=== PATIENT | male | born 1940 | race African-American/Black ===

== ENCOUNTER 2018-05-29 12:05 | Inpatient (IN) | payer MEDICARE, MEDICAID ==
[~2018-05-29] VITALS: Ht 185.4 cm; Wt 68.5 kg
[~2018-05-29 12:05] MED LIST: AMLO10TA80 PO; CHOL100046 PO; LAMO150T PO; LEVE500T19; RISP0.5T19 PO
[2018-05-29 13:35] LABS: HEMATOCRIT. 37.9 % (42.0-52.0); HEMOGLOBIN. 12.6 g/dL (14.0-18.0); MEAN CORPUSCULAR HEMOGLOBIN 30.3 pg (28.0-32.0); MEAN CORPUSCULAR VOLUME 91.7 fL (80.0-94.0); MEAN PLATELET VOLUME 8.7 fl (7.4-10.4); PLATELET 183 x1000/uL (130-400); RED BLOOD CELL COUNT 4.14 mill/uL (4.7-6.1); RED CELL DISTRIBUTION WIDTH 12.9 % (11.6-14.6)
[2018-05-29 13:38] LABS: CHLORIDE 100 mEq/L (98-107)
[2018-05-29 13:43] LABS: ETHANOL BLOOD < 10 mg/dL
[2018-05-29 14:03] LABS: PLATELET ESTIMATE NORMAL
[2018-05-29] MEDS ORDERED: SODIUM CHLORIDE 0.9% 500 ML IV ONE (15:00)
[2018-05-29 15:03] LABS: CLARITY URINE CLEAR (CLEAR); COLOR URINE YELLOW (YELLOW); KETONES URINE NEGATIVE (NEGATIVE); LEUKOCYTE ESTERASE URINE TRACE (NEGATIVE); NITRITE URINE NEGATIVE (NEGATIVE); OCCULT BLOOD URINE NEGATIVE (NEGATIVE); PH URINE 6.5 (4.5-8.0); PROTEIN URINE NEGATIVE (NEGATIVE); SPECIFIC GRAVITY URINE 1.006 (1.005-1.030); UROBILINOGEN URINE 0.2 E.U./dL (0.2-1.0)
[2018-05-29 15:35] LABS: *AMPHETAMINES SCREEN URINE NEGATIVE (NEGATIVE); *BARBITURATES SCREEN URINE NEGATIVE (NEGATIVE); *BENZODIAZEPINES SCREEN URINE NEGATIVE (NEGATIVE); *COCAINE SCREEN URINE NEGATIVE (NEGATIVE)
[2018-05-29 15:36] LABS: CANNABINOID URINE SCREEN NEGATIVE (NEGATIVE); METHADONE URINE SCREEN NEGATIVE (NEGATIVE); OPIATES URINE SCREEN NEGATIVE (NEGATIVE); PHENCYCLIDINE URINE SCREEN NEGATIVE (NEGATIVE)
[2018-05-29] MEDS ORDERED: CEFTRIAXONE 1 G PREMIX 50 ML IV ONE (15:45)
[2018-05-29] MEDS ORDERED: IPRATROPIUM/ALBUTEROL 0.5-3(2.5)MG/3ML NEB INH PRN (16:30)
[2018-05-29] MEDS ORDERED: ACETAMINOPHEN 650MG SUPP PR PRN (16:30)
[2018-05-29] MEDS ORDERED: ACETAMINOPHEN 325MG TABLET PO PRN (16:30)
[2018-05-29] MEDS ORDERED: LORAZEPAM 2MG/ML CPJ IV PRN (16:30)
[2018-05-29] MEDS ORDERED: NITROGLYCERIN 0.4MG TABLET SL SL PRN (16:30)
[2018-05-29] MEDS ORDERED: ZOLPIDEM TARTRATE 5MG TABLET PO PRN (16:30)
[2018-05-29] MEDS ORDERED: GUAIFENESIN 200MG/10ML SUGAR FREE UDC PO PRN (16:30)
[2018-05-29] MEDS ORDERED: LEVOFLOXACIN 500MG PREMIX 100 ML IV SCH (16:30)
[2018-05-29] MEDS ORDERED: TRAMADOL 50MG TABLET PO PRN (16:30)
[2018-05-29] MEDS ORDERED: NA PHOS,M-B/NA PHOS,DI-BA ENEMA 118ML PR PRN (16:30)
[2018-05-29] MEDS ORDERED: ONDANSETRON HCL 4MG/2ML INJ IV PRN (16:30)
[2018-05-29] MEDS ORDERED: CLONIDINE 0.1MG TABLET PO PRN (16:30)
[2018-05-29] MEDS ORDERED: DIPHENHYDRAMINE 50MG/ML VIAL IV PRN (16:30)
[2018-05-29] MEDS ORDERED: DOCUSATE SODIUM 100MG CAPSULE PO PRN (16:30)
[2018-05-29] MEDS ORDERED: MAGNESIUM/ALUMINUM HYDROXIDE/SIMETHICONE 30ML UDC PO PRN (16:30)
[2018-05-29 17:04] LABS: FOLIC ACID (FOLATE) SERUM >20 ng/mL ng/mL (>5.38)
[2018-05-29 17:16] LABS: VITAMIN B12 SERUM 1432 pg/mL (211-911)
[2018-05-29 18:15] VITALS: BP 163/67
[2018-05-29] MEDS ORDERED: ENOXAPARIN 40MG/0.4ML SYR SUBCUT SCH (18:30)
[2018-05-29 20:00] VITALS: BP 147/60
[2018-05-29 20:36] LABS: INR 1.1; PROTHROMBIN TIME 10.9 sec (9.1-11.1)
[2018-05-29] MEDS: ASCORBIC ACID 500 MG TABLET PO SCH (21:38)
[2018-05-29] MEDS: LEVETIRACETAM 500MG TABLET PO SCH (21:38)
[2018-05-29] MEDS: LAMOTRIGINE 150MG TABLET PO SCH (21:38)
[2018-05-29] MEDS: ENOXAPARIN 80MG/0.8ML SYR SUBCUT SCH (21:38)
[2018-05-29] MEDS: LEVOFLOXACIN 500MG PREMIX 100 ML IV SCH (21:46)
[2018-05-29] MEDS: SODIUM CHLORIDE 0.9% 1,000 ML IV SCH (21:46)
[2018-05-30] VITALS: BP 131/57
[2018-05-30 04:00] VITALS: BP 147/57
[2018-05-30 07:30] VITALS: BP 138/57
[2018-05-30 08:20] LABS: CREATINE KINASE MB FRACTION 3.2 ng/mL (0.5-3.6)
[2018-05-30] MEDS ORDERED: CEFTRIAXONE 1 G PREMIX 50 ML IV SCH (09:00)
[2018-05-30] MEDS: LEVETIRACETAM 500MG TABLET PO SCH ×2 (09:29→21:02)
[2018-05-30] MEDS: FAMOTIDINE 20MG TABLET PO SCH (09:29)
[2018-05-30] MEDS: ENOXAPARIN 80MG/0.8ML SYR SUBCUT SCH ×2 (09:29→21:02)
[2018-05-30] MEDS: ZINC SULFATE 220 MG ( 50 ) CAPSULE PO SCH (09:30)
[2018-05-30] MEDS: ASPIRIN 325MG EC TABLET PO SCH (09:30)
[2018-05-30] MEDS: ASCORBIC ACID 500 MG TABLET PO SCH ×2 (09:30→21:02)
[2018-05-30] MEDS: LAMOTRIGINE 150MG TABLET PO SCH ×2 (09:30→21:02)
[2018-05-30 11:21] LABS: HEMATOCRIT. 35.9 % (42.0-52.0); HEMOGLOBIN. 11.9 g/dL (14.0-18.0); MEAN CORPUSCULAR HEMOGLOBIN 30.3 pg (28.0-32.0); MEAN CORPUSCULAR VOLUME 91.4 fL (80.0-94.0); MEAN PLATELET VOLUME 8.4 fl (7.4-10.4); PLATELET 173 x1000/uL (130-400); RED BLOOD CELL COUNT 3.93 mill/uL (4.7-6.1); RED CELL DISTRIBUTION WIDTH 12.9 % (11.6-14.6)
[2018-05-30 11:23] LABS: CHLORIDE 101 mEq/L (98-107)
[2018-05-30 11:32] LABS: CREATINE KINASE 377 IU/L (39-308)
[2018-05-30 11:34] LABS: CREATINE KINASE MB FRACTION 3.4 ng/mL (0.5-3.6)
[2018-05-30 12:00] VITALS: BP 127/63
[2018-05-30 13:24] LABS: PLATELET ESTIMATE NORMAL
[2018-05-30] MEDS: SODIUM CHLORIDE 0.9% 1,000 ML IV SCH (14:26)
[2018-05-30 16:00] VITALS: BP 145/58
[2018-05-30] MEDS: CEFTRIAXONE 1 G PREMIX 50 ML IV SCH (17:36)
[2018-05-30] MEDS ORDERED: DOCU-272 PO (19:35)
[2018-05-30] MEDS ORDERED: CALC-25 PO (19:35)
[2018-05-30] MEDS ORDERED: HYDR25TA PO (19:35)
[2018-05-30] MEDS ORDERED: LISI-604 PO (19:35)
[2018-05-30 20:00] VITALS: BP 125/65
[2018-05-31] VITALS (7 sets, daily range): BP systolic 118–163; BP diastolic 53–80
[2018-05-31] MEDS: SODIUM CHLORIDE 0.9% 1,000 ML IV SCH ×3 (06:00→20:21)
[2018-05-31] MEDS: ZINC SULFATE 220 MG ( 50 ) CAPSULE PO SCH (08:07)
[2018-05-31] MEDS: LEVETIRACETAM 500MG TABLET PO SCH ×2 (08:07→20:15)
[2018-05-31] MEDS: FAMOTIDINE 20MG TABLET PO SCH (08:07)
[2018-05-31] MEDS: LAMOTRIGINE 150MG TABLET PO SCH ×2 (08:07→20:15)
[2018-05-31] MEDS: ASCORBIC ACID 500 MG TABLET PO SCH ×2 (08:08→20:15)
[2018-05-31] MEDS: ASPIRIN 325MG EC TABLET PO SCH (08:08)
[2018-05-31] MEDS: ENOXAPARIN 80MG/0.8ML SYR SUBCUT SCH ×2 (08:09→20:15)
[2018-05-31] MEDS: CEFTRIAXONE 1 G PREMIX 50 ML IV SCH (16:40)
[2018-05-31] MEDS: LEVOFLOXACIN 500MG PREMIX 100 ML IV SCH (20:15)
[2018-06-01] VITALS: BP 122/80
[2018-06-01 04:00] VITALS: BP 121/57
[2018-06-01 08:00] VITALS: BP 139/52
[2018-06-01] MEDS: ENOXAPARIN 80MG/0.8ML SYR SUBCUT SCH ×2 (09:31→20:58)
[2018-06-01] MEDS: LAMOTRIGINE 150MG TABLET PO SCH ×2 (09:32→20:58)
[2018-06-01] MEDS: ASPIRIN 325MG EC TABLET PO SCH (09:32)
[2018-06-01] MEDS: FAMOTIDINE 20MG TABLET PO SCH (09:32)
[2018-06-01] MEDS: ASCORBIC ACID 500 MG TABLET PO SCH ×2 (09:32→20:58)
[2018-06-01] MEDS: LEVETIRACETAM 500MG TABLET PO SCH ×2 (09:32→20:58)
[2018-06-01] MEDS: ZINC SULFATE 220 MG ( 50 ) CAPSULE PO SCH (09:32)
[2018-06-01 12:00] VITALS: BP 142/59
[2018-06-01] MEDS: SODIUM CHLORIDE 0.9% 1,000 ML IV SCH (13:03)
[2018-06-01 16:28] VITALS: BP 149/57
[2018-06-01] MEDS: CEFTRIAXONE 1 G PREMIX 50 ML IV SCH (16:35)
[2018-06-01] MEDS: LEVOFLOXACIN 250MG TABLET PO SCH (17:32)
[2018-06-01 20:00] VITALS: BP 144/58
[2018-06-02] VITALS: BP 131/53
[2018-06-02] MEDS: SODIUM CHLORIDE 0.9% 1,000 ML IV SCH ×2 (02:40→07:23)
[2018-06-02 04:00] VITALS: BP 148/61
[2018-06-02] MEDS: FAMOTIDINE 20MG TABLET PO SCH (08:53)
[2018-06-02] MEDS: ZINC SULFATE 220 MG ( 50 ) CAPSULE PO SCH (08:53)
[2018-06-02] MEDS: ASPIRIN 325MG EC TABLET PO SCH (08:53)
[2018-06-02] MEDS: LAMOTRIGINE 150MG TABLET PO SCH (08:53)
[2018-06-02] MEDS: LEVETIRACETAM 500MG TABLET PO SCH (08:53)
[2018-06-02] MEDS: ASCORBIC ACID 500 MG TABLET PO SCH (08:53)
[2018-06-02] MEDS: ENOXAPARIN 80MG/0.8ML SYR SUBCUT SCH (08:53)
[2018-06-02 09:09] VITALS: BP 156/57
[2018-06-02] MEDS: LEVOFLOXACIN 250MG TABLET PO SCH (11:31)
[2018-06-02 12:00] VITALS: BP 140/68
[2018-06-02 13:11] VITALS: BP 140/68
[2018-06-02 16:00] VITALS: BP 158/81
[2018-06-02] MEDS: CEFTRIAXONE 1 G PREMIX 50 ML IV SCH (17:38)
[2018-06-02] MEDS ORDERED: ATORVASTATIN CALCIUM 10MG TABLET PO SCH (21:00)
== END 2018-06-02 19:00 | DRG 871 ==
LOC: ER 12:05 → 8WST 16:05 → EDBEDREQ 16:12 → SUPCPDRO 16:15 → ENRESERV 17:05
PROVIDERS: ADMIT Internal Medicine; ATTEND Internal Medicine
DX: A41.9 Sepsis, unspecified organism (principal); N17.0 Acute kidney failure with tubular necrosis; G92 Toxic encephalopathy; N39.0 Urinary tract infection, site not specified; E87.2 Acidosis; D63.8 Anemia in other chronic diseases classified elsewhere; G40.909 Epilepsy, unspecified, not intractable, without status epilepticus; I10 Essential (primary) hypertension; M19.90 Unspecified osteoarthritis, unspecified site; R26.9 Unspecified abnormalities of gait and mobility
CPT/HCPCS: 36415; 70450; 71045; 80053; 80061; 80305; 81003; 82550; 82553; 82607; 82746; 83036; 83540; 83550; 83605; 84484; 85025; 85610; 93005; 93306; 93970; 96361; 96365; 97116; 97162; 97166; 99285; C1893; G0482; J0696; J1650; J1956; J7030

== ENCOUNTER 2020-01-12 11:28 | Inpatient (IN) | payer MEDICARE, OTHER ==
[~2020-01-12] VITALS: Ht 167.6 cm; Wt 73.5 kg
[~2020-01-12 11:28] MED LIST changes: +CALC-25 PO; +DOCU-272 PO; +HYDR25TA PO; -LAMO150T PO; +LAMO150T5 PO; -LEVE500T19; +LISI-604 PO
[2020-01-12 12:44] LABS: CHLORIDE 109 mEq/L (98-107)
[2020-01-12 12:46] LABS: BASOPHILS % 0.3 % (0.0-2.0); EOSINOPHILS % 0.1 % (0.0-5.0); HEMATOCRIT. 39.3 % (42.0-52.0); LYMPHOCYTES % 7.1 % (20.0-50.0); MEAN CORPUSCULAR HEMOGLOBIN 29.7 pg (28.0-32.0); MEAN CORPUSCULAR VOLUME 89.7 fL (80.0-94.0); MEAN PLATELET VOLUME 8.4 fl (7.4-10.4); MONOCYTES % 8.2 % (2.0-8.0); NEUTROPHILS % 84.3 % (40.0-76.0); PLATELET 243 x1000/uL (130-400); RED BLOOD CELL COUNT 4.38 mill/uL (4.7-6.1); RED CELL DISTRIBUTION WIDTH 12.8 % (11.6-14.6)
[2020-01-12 12:47] LABS: PROTHROMBIN TIME 10.4 sec (9.6-11.0)
[2020-01-12 12:48] LABS: ETHANOL BLOOD < 10 mg/dL
[2020-01-12] MEDS ORDERED: VANCOMYCIN 1 G PREMIX 200 ML IV ONE (13:15)
[2020-01-12] MEDS ORDERED: AZITHROMYCIN 500 MG in DEXT 5% WATER 250 ML IV ONE (13:15)
[2020-01-12] MEDS ORDERED: PIPERACILLIN/TAZ 3.375G PREMIX 50 ML IV ONE (13:15)
[2020-01-12 13:22] LABS: BG BASE EXCESS -2.1 mmol/L (-2.0-2.0); BG CARBOXYHEMOGLOBIN 0.8 % (0.5-1.5); BG DEOXYHEMOGLOBIN 7.1 % (0.0-5.0); BG FRACTION INSPIRED OXYGEN 99.8; BG HCO3 ACT 22.9 mmol/L (22.0-26.0); BG OXYGEN SATURATION 92.8 % (92.0-98.5); BG OXYHEMOGLOBIN 92.1 % (94.0-97.0); BG PCO2 40.2 mmHg (35.0-45.0); BG PH 7.374 (7.350-7.450); BG PO2 69.3 mmHg (75.0-100.0); BG SAMPLE SITE RIGHT RADIAL; BG TOTAL HEMOGLOBIN 13.1 g/dL (12.0-18.0); BG VENT MODE MASK - NRB
[2020-01-12] MEDS ORDERED: ONDANSETRON HCL 4MG/2ML INJ IV PRN (15:00)
[2020-01-12] MEDS ORDERED: LORAZEPAM 2MG/ML CPJ IV PRN (15:00)
[2020-01-12] MEDS ORDERED: MAGNESIUM/ALUMINUM HYDROXIDE/SIMETHICONE 30ML UDC PO PRN (15:00)
[2020-01-12] MEDS ORDERED: HYDROMORPHONE HCL/PF 2MG/ML CPJ IV PRN (15:00)
[2020-01-12] MEDS ORDERED: DOCUSATE SODIUM 100MG CAPSULE PO PRN (15:00)
[2020-01-12] MEDS ORDERED: CLONIDINE 0.1MG TABLET PO PRN (15:00)
[2020-01-12] MEDS ORDERED: ACETAMINOPHEN 325MG TABLET PO PRN (15:00)
[2020-01-12 15:06] LABS: CLARITY URINE CLOUDY (CLEAR); COLOR URINE DARK YELLOW (YELLOW); KETONES URINE NEGATIVE (NEGATIVE); LEUKOCYTE ESTERASE URINE TRACE (NEGATIVE); NITRITE URINE POSITIVE (NEGATIVE); OCCULT BLOOD URINE 3+ (NEGATIVE); PH URINE 5.5 (4.5-8.0); PROTEIN URINE 3+ (NEGATIVE); SPECIFIC GRAVITY URINE 1.022 (1.005-1.030)
[2020-01-12] MEDS ORDERED: CEFTRIAXONE 1 G PREMIX 50 ML IV NR (17:15)
[2020-01-12] MEDS ORDERED: ENOXAPARIN 40MG/0.4ML SYR SUBCUT NR (17:15)
[2020-01-12] MEDS: DEXT 5%/0.45% NACL 1000ML 1,000 ML IV SCH (17:55)
[2020-01-13] VITALS (7 sets, daily range): BP systolic 131–147; BP diastolic 42–67
[2020-01-13 06:21] LABS: HEMATOCRIT. 35.2 % (42.0-52.0); HEMOGLOBIN. 11.5 g/dL (14.0-18.0); MEAN CORPUSCULAR HEMOGLOBIN 29.4 pg (28.0-32.0); MEAN CORPUSCULAR VOLUME 89.6 fL (80.0-94.0); MEAN PLATELET VOLUME 8.4 fl (7.4-10.4); PLATELET 212 x1000/uL (130-400); RED BLOOD CELL COUNT 3.93 mill/uL (4.7-6.1); RED CELL DISTRIBUTION WIDTH 12.7 % (11.6-14.6)
[2020-01-13 07:43] LABS: CHLORIDE 109 mEq/L (98-107)
[2020-01-13] MEDS ORDERED: ALBUTEROL 6.7GM HFA INHALER ORI PRN (08:00)
[2020-01-13] MEDS ORDERED: MELA1TAB28 MT (08:59)
[2020-01-13] MEDS ORDERED: MELA5TAB19 MT (08:59)
[2020-01-13] MEDS ORDERED: LEVE1000 MT (08:59)
[2020-01-13] MEDS ORDERED: FAMO20TA8 PO (09:26)
[2020-01-13] MEDS ORDERED: BISA10SU62 RC (09:26)
[2020-01-13] MEDS ORDERED: NITR0.4T49 SL (09:26)
[2020-01-13] MEDS ORDERED: ASPI325T85 MT (09:26)
[2020-01-13] MEDS ORDERED: DIPH50CA4 PO (09:26)
[2020-01-13] MEDS ORDERED: DOCU-150 MT (09:26)
[2020-01-13] MEDS ORDERED: MULT-379 MT (09:26)
[2020-01-13] MEDS ORDERED: TRAM50TA MT (09:26)
[2020-01-13] MEDS ORDERED: ATOR10TA69 MT (09:26)
[2020-01-13 09:50] LABS: BG BASE EXCESS 1.1 mmol/L (-2.0-2.0); BG CARBOXYHEMOGLOBIN 0.3 % (0.5-1.5); BG DEOXYHEMOGLOBIN 3.9 % (0.0-5.0); BG FRACTION INSPIRED OXYGEN 100; BG HCO3 ACT 26.2 mmol/L (22.0-26.0); BG METHEMOGLOBIN 0.1 % (0.0-1.5); BG OXYGEN SATURATION 96.1 % (92.0-98.5); BG OXYHEMOGLOBIN 95.7 % (94.0-97.0); BG PCO2 43.2 mmHg (35.0-45.0); BG PO2 84.6 mmHg (75.0-100.0); BG SAMPLE SITE RIGHT BRACHIAL; BG TOTAL HEMOGLOBIN 11.8 g/dL (12.0-18.0); BG VENT MODE MASK - NRB
[2020-01-13] MEDS: METHYLPREDNISOLONE SOD SUCC 40 MG/ML VIAL IV SCH ×2 (10:33→20:59)
[2020-01-13] MEDS: GUAIFENESIN 600MG ER TABLET PO SCH ×2 (10:33→22:26)
[2020-01-13] MEDS: RISPERIDONE 0.5MG TABLET PO SCH (10:54)
[2020-01-13] MEDS ORDERED: AZITHROMYCIN 250 MG in DEXT 5% WATER 250 ML IV SCH (14:00)
[2020-01-13] MEDS: ALBUTEROL 6.7GM HFA INHALER ORI SCH ×2 (14:00→20:00)
[2020-01-13] MEDS ORDERED: CEFTRIAXONE 1 G PREMIX 50 ML IV SCH ×2 (15:00)
[2020-01-13] MEDS ORDERED: ENOXAPARIN 40MG/0.4ML SYR SUBCUT SCH (15:00)
[2020-01-13] MEDS ORDERED: AZITHROMYCIN 500 MG in DEXT 5% WATER 250 ML IV SCH (15:00)
[2020-01-13 15:44] LABS: PLATELET ESTIMATE NORMAL
[2020-01-13] MEDS ORDERED: VANCOMYCIN 1 G PREMIX 200 ML IV SCH (18:00)
[2020-01-13] MEDS: PIPERACILLIN/TAZOBACTAM 3.375 G in DEXT 5% WATER 100 ML IV SCH (18:25)
[2020-01-13] MEDS ORDERED: LEVETIRACETAM 500MG/5ML CUP PO SCH (21:00)
[2020-01-13] MEDS: LAMOTRIGINE 150MG TABLET PO SCH (21:00)
[2020-01-13] MEDS: DEXT 5%/0.45% NACL 1000ML 1,000 ML IV SCH (21:40)
[2020-01-13] MEDS ORDERED: NON FORMULARY PATIENT HOME MED XX SCH (22:30)
[2020-01-14] VITALS (53 sets, daily range): BP systolic 96–182; BP diastolic 51–94
[2020-01-14] MEDS: DEXT 5%/0.45% NACL 1000ML 1,000 ML IV SCH ×2 (00:19→13:58)
[2020-01-14] MEDS: LEVETIRACETAM 1,000 MG in SODIUM CHLORIDE 0.9% 100 ML IV SCH ×3 (00:59→21:31)
[2020-01-14] MEDS: PIPERACILLIN/TAZOBACTAM 3.375 G in DEXT 5% WATER 100 ML IV SCH ×3 (01:15→18:18)
[2020-01-14] MEDS: ALBUTEROL 6.7GM HFA INHALER ORI SCH ×3 (01:28→20:50)
[2020-01-14 07:25] LABS: CHLORIDE 111 mEq/L (98-107)
[2020-01-14 07:45] LABS: CREATINE KINASE 1999 IU/L (39-308)
[2020-01-14] MEDS: GUAIFENESIN 600MG ER TABLET PO SCH ×2 (09:00→21:31)
[2020-01-14] MEDS: RISPERIDONE 0.5MG TABLET PO SCH (09:00)
[2020-01-14] MEDS: LAMOTRIGINE 150MG TABLET PO SCH ×2 (09:00→21:32)
[2020-01-14] MEDS: METHYLPREDNISOLONE SOD SUCC 40 MG/ML VIAL IV SCH ×2 (09:12→21:32)
[2020-01-14 09:35] LABS: C REACTIVE PROTEIN QUANT > 190.0 mg/L (0.0-3.0)
[2020-01-14 10:47] LABS: BG BASE EXCESS 1.5 mmol/L (-2.0-2.0); BG CARBOXYHEMOGLOBIN 0.2 % (0.5-1.5); BG DEOXYHEMOGLOBIN 28.2 % (0.0-5.0); BG FRACTION INSPIRED OXYGEN 99.8; BG HCO3 ACT 27.4 mmol/L (22.0-26.0); BG METHEMOGLOBIN 0.3 % (0.0-1.5); BG OXYGEN SATURATION 71.7 % (92.0-98.5); BG OXYHEMOGLOBIN 71.3 % (94.0-97.0); BG PCO2 48.4 mmHg (35.0-45.0); BG PH 7.371 (7.350-7.450); BG PO2 39.7 mmHg (75.0-100.0); BG SAMPLE SITE RIGHT RADIAL; BG TOTAL HEMOGLOBIN 12.5 g/dL (12.0-18.0); BG VENT MODE MASK - NRB
[2020-01-14] MEDS ORDERED: NOREPINEPHRINE 32 MG in DEXT 5% WATER 468 ML IV PRN (11:30)
[2020-01-14] MEDS ORDERED: REMDESIVIR 200 MG in SODIUM CHLORIDE 0.9% 250 ML IV SCH (13:00)
[2020-01-14 13:30] LABS: BG BASE EXCESS -0.5 mmol/L (-2.0-2.0); BG CARBOXYHEMOGLOBIN 0.4 % (0.5-1.5); BG FRACTION INSPIRED OXYGEN 100; BG HCO3 ACT 30.3 mmol/L (22.0-26.0); BG METHEMOGLOBIN 0.3 % (0.0-1.5); BG OXYGEN SATURATION 88.9 % (92.0-98.5); BG OXYHEMOGLOBIN 88.3 % (94.0-97.0); BG PCO2 84.3 mmHg (35.0-45.0); BG PH 7.173 (7.350-7.450); BG PO2 69.9 mmHg (75.0-100.0); BG SAMPLE SITE RIGHT BRACHIAL; BG TIDAL VOLUME(mL) 450 mL; BG TOTAL HEMOGLOBIN 13.5 g/dL (12.0-18.0); BG VENT MODE VENT - A/C; BG VENT RATE 18 set
[2020-01-14] MEDS ORDERED: LIDOCAINE HCL 1% 20ML VIAL (Pyxis) INJ ONE (13:32)
[2020-01-14] MEDS: ENOXAPARIN 80MG/0.8ML SYR SUBCUT SCH (14:00)
[2020-01-14] MEDS: PROPOFOL 10MG/ML 100ML 100 ML IV PRN ×2 (15:07→20:48)
[2020-01-14] MEDS: VANCOMYCIN 1 G PREMIX 200 ML IV SCH (17:17)
[2020-01-14] MEDS: AZITHROMYCIN 250 MG in DEXT 5% WATER 250 ML IV SCH (21:31)
[2020-01-15] VITALS (97 sets, daily range): BP systolic 89–157; BP diastolic 45–103
[2020-01-15] MEDS: PIPERACILLIN/TAZOBACTAM 3.375 G in DEXT 5% WATER 100 ML IV SCH ×2 (00:47→05:35)
[2020-01-15] MEDS: PROPOFOL 10MG/ML 100ML 100 ML IV PRN ×5 (01:24→19:47)
[2020-01-15] MEDS: ENOXAPARIN 80MG/0.8ML SYR SUBCUT SCH (02:17)
[2020-01-15] MEDS: LEVETIRACETAM 1,000 MG in SODIUM CHLORIDE 0.9% 100 ML IV SCH ×2 (08:51→20:47)
[2020-01-15] MEDS: LAMOTRIGINE 150MG TABLET PO SCH ×2 (08:51→20:47)
[2020-01-15] MEDS: METHYLPREDNISOLONE SOD SUCC 40 MG/ML VIAL IV SCH ×2 (08:51→20:47)
[2020-01-15] MEDS: RISPERIDONE 0.5MG TABLET PO SCH (08:51)
[2020-01-15] MEDS: GUAIFENESIN 600MG ER TABLET PO SCH (08:51)
[2020-01-15 09:23] LABS: BG BASE EXCESS -0.8 mmol/L (-2.0-2.0); BG CARBOXYHEMOGLOBIN 0.3 % (0.5-1.5); BG DEOXYHEMOGLOBIN 1.3 % (0.0-5.0); BG FRACTION INSPIRED OXYGEN 100; BG HCO3 ACT 27.1 mmol/L (22.0-26.0); BG METHEMOGLOBIN 0.3 % (0.0-1.5); BG OXYGEN SATURATION 98.7 % (92.0-98.5); BG OXYHEMOGLOBIN 98.1 % (94.0-97.0); BG PCO2 61.7 mmHg (35.0-45.0); BG PH 7.261 (7.350-7.450); BG PO2 167.1 mmHg (75.0-100.0); BG SAMPLE SITE RIGHT RADIAL; BG TIDAL VOLUME(mL) 450 mL; BG TOTAL HEMOGLOBIN 11.4 g/dL (12.0-18.0); BG VENT MODE VENT - A/C; BG VENT RATE 18 set
[2020-01-15] MEDS: DEXT 5%/0.45% NACL 1000ML 1,000 ML IV SCH (10:48)
[2020-01-15] MEDS: PIPERACILLIN/TAZOBACTAM 2.25 G in DEXTROSE 5% WATER 50 ML IV SCH ×3 (11:32→23:39)
[2020-01-15] MEDS: REMDESIVIR 100 MG in SODIUM CHLORIDE 0.9% 250 ML IV SCH (13:58)
[2020-01-15] MEDS: VANCOMYCIN 1 G PREMIX 200 ML IV SCH (14:00)
[2020-01-15] MEDS: AZITHROMYCIN 250 MG in DEXT 5% WATER 250 ML IV SCH (18:39)
[2020-01-15] MEDS ORDERED: ENOXAPARIN 80MG/0.8ML SYR SUBCUT SCH (23:00)
[2020-01-16] VITALS (89 sets, daily range): BP systolic 96–155; BP diastolic 47–79
[2020-01-16] MEDS: ALBUTEROL 6.7GM HFA INHALER ORI SCH ×6 (00:30→21:05)
[2020-01-16] MEDS: PROPOFOL 10MG/ML 100ML 100 ML IV PRN ×6 (00:31→22:45)
[2020-01-16] MEDS: PIPERACILLIN/TAZOBACTAM 2.25 G in DEXTROSE 5% WATER 50 ML IV SCH ×3 (05:19→17:39)
[2020-01-16] MEDS: DEXT 5%/0.45% NACL 1000ML 1,000 ML IV SCH (05:21)
[2020-01-16 05:34] LABS: HEMATOCRIT. 29.7 % (42.0-52.0); HEMOGLOBIN. 10.2 g/dL (14.0-18.0); MEAN CORPUSCULAR HEMOGLOBIN 31.3 pg (28.0-32.0); MEAN CORPUSCULAR VOLUME 90.9 fL (80.0-94.0); MEAN PLATELET VOLUME 9.1 fl (7.4-10.4); PLATELET 187 x1000/uL (130-400); RED BLOOD CELL COUNT 3.27 mill/uL (4.7-6.1); RED CELL DISTRIBUTION WIDTH 13.5 % (11.6-14.6)
[2020-01-16] MEDS: VANCOMYCIN 1 G PREMIX 200 ML IV SCH (06:42)
[2020-01-16] MEDS: METHYLPREDNISOLONE SOD SUCC 40 MG/ML VIAL IV SCH ×2 (09:32→20:55)
[2020-01-16] MEDS: RISPERIDONE 0.5MG TABLET PO SCH (09:32)
[2020-01-16] MEDS: LEVETIRACETAM 1,000 MG in SODIUM CHLORIDE 0.9% 100 ML IV SCH ×2 (09:32→20:55)
[2020-01-16] MEDS: LAMOTRIGINE 150MG TABLET PO SCH ×2 (09:32→20:54)
[2020-01-16 09:40] LABS: BG BASE EXCESS 1.6 mmol/L (-2.0-2.0); BG CARBOXYHEMOGLOBIN 0.3 % (0.5-1.5); BG DEOXYHEMOGLOBIN 3.2 % (0.0-5.0); BG FRACTION INSPIRED OXYGEN 80; BG HCO3 ACT 28.3 mmol/L (22.0-26.0); BG METHEMOGLOBIN 0.2 % (0.0-1.5); BG OXYGEN SATURATION 96.8 % (92.0-98.5); BG OXYHEMOGLOBIN 96.3 % (94.0-97.0); BG PCO2 54.8 mmHg (35.0-45.0); BG PH 7.331 (7.350-7.450); BG PO2 99.2 mmHg (75.0-100.0); BG SAMPLE SITE RIGHT RADIAL; BG TIDAL VOLUME(mL) 450 mL; BG TOTAL HEMOGLOBIN 10.9 g/dL (12.0-18.0); BG VENT MODE VENT- PRVC; BG VENT RATE 24 set
[2020-01-16 11:10] LABS: PLATELET ESTIMATE NORMAL
[2020-01-16] MEDS: REMDESIVIR 100 MG in SODIUM CHLORIDE 0.9% 250 ML IV SCH (14:00)
[2020-01-16] MEDS: ENOXAPARIN 80MG/0.8ML SYR SUBCUT SCH (17:41)
[2020-01-16] MEDS: AZITHROMYCIN 250 MG in DEXT 5% WATER 250 ML IV SCH (19:02)
[2020-01-17] VITALS (98 sets, daily range): BP systolic 94–160; BP diastolic 45–111
[2020-01-17] MEDS: VANCOMYCIN 1 G PREMIX 200 ML IV SCH ×2 (01:01→17:36)
[2020-01-17] MEDS: PIPERACILLIN/TAZOBACTAM 2.25 G in DEXTROSE 5% WATER 50 ML IV SCH ×5 (01:01→23:49)
[2020-01-17] MEDS: DEXT 5%/0.45% NACL 1000ML 1,000 ML IV SCH ×2 (01:02→23:49)
[2020-01-17] MEDS: PROPOFOL 10MG/ML 100ML 100 ML IV PRN ×7 (01:13→22:49)
[2020-01-17] MEDS: ALBUTEROL 6.7GM HFA INHALER ORI SCH ×6 (01:15→20:50)
[2020-01-17] MEDS: ENOXAPARIN 80MG/0.8ML SYR SUBCUT SCH ×2 (08:04→17:22)
[2020-01-17] MEDS: METHYLPREDNISOLONE SOD SUCC 40 MG/ML VIAL IV SCH ×2 (08:26→20:29)
[2020-01-17] MEDS: RISPERIDONE 0.5MG TABLET PO SCH (08:26)
[2020-01-17] MEDS: LEVETIRACETAM 1,000 MG in SODIUM CHLORIDE 0.9% 100 ML IV SCH ×2 (08:26→21:34)
[2020-01-17 09:02] LABS: BG BASE EXCESS 3.4 mmol/L (-2.0-2.0); BG CARBOXYHEMOGLOBIN 0.3 % (0.5-1.5); BG DEOXYHEMOGLOBIN 4.2 % (0.0-5.0); BG FRACTION INSPIRED OXYGEN 70; BG HCO3 ACT 30.4 mmol/L (22.0-26.0); BG OXYGEN SATURATION 95.8 % (92.0-98.5); BG OXYHEMOGLOBIN 95.5 % (94.0-97.0); BG PH 7.337 (7.350-7.450); BG PO2 86.5 mmHg (75.0-100.0); BG SAMPLE SITE RIGHT RADIAL; BG TIDAL VOLUME(mL) 450 mL; BG TOTAL HEMOGLOBIN 11.5 g/dL (12.0-18.0); BG VENT MODE PRVC; BG VENT RATE 24 set
[2020-01-17] MEDS: LAMOTRIGINE 150MG TABLET PO SCH ×2 (10:36→20:29)
[2020-01-17] MEDS: REMDESIVIR 100 MG in SODIUM CHLORIDE 0.9% 250 ML IV SCH (12:50)
[2020-01-17] MEDS: METOCLOPRAMIDE HCL 10MG/2ML VIAL IV SCH (17:19)
[2020-01-17] MEDS: AZITHROMYCIN 250 MG in DEXT 5% WATER 250 ML IV SCH (18:07)
[2020-01-17] MEDS: MIDAZOLAM HCL 100 MG in DEXT 5% WATER 80 ML IV PRN (23:12)
[2020-01-18] VITALS (91 sets, daily range): BP systolic 103–168; BP diastolic 53–116
[2020-01-18] MEDS: METOCLOPRAMIDE HCL 10MG/2ML VIAL IV SCH ×4 (00:06→18:05)
[2020-01-18] MEDS: DEXT 5%/0.45% NACL 1000ML 1,000 ML IV SCH ×2 (04:19→23:25)
[2020-01-18] MEDS: PROPOFOL 10MG/ML 100ML 100 ML IV PRN ×4 (05:38→19:50)
[2020-01-18] MEDS: PIPERACILLIN/TAZOBACTAM 2.25 G in DEXTROSE 5% WATER 50 ML IV SCH ×4 (05:45→23:26)
[2020-01-18] MEDS: ENOXAPARIN 80MG/0.8ML SYR SUBCUT SCH ×2 (05:46→17:40)
[2020-01-18] MEDS: LEVETIRACETAM 1,000 MG in SODIUM CHLORIDE 0.9% 100 ML IV SCH ×2 (08:44→21:14)
[2020-01-18] MEDS: RISPERIDONE 0.5MG TABLET PO SCH (08:44)
[2020-01-18] MEDS: METHYLPREDNISOLONE SOD SUCC 40 MG/ML VIAL IV SCH ×2 (08:44→21:03)
[2020-01-18] MEDS: LAMOTRIGINE 150MG TABLET PO SCH ×2 (08:44→21:03)
[2020-01-18 09:44] LABS: HEMATOCRIT. 30.8 % (42.0-52.0); HEMOGLOBIN. 10.1 g/dL (14.0-18.0); MEAN CORPUSCULAR HEMOGLOBIN 30.2 pg (28.0-32.0); MEAN PLATELET VOLUME 9.8 fl (7.4-10.4); PLATELET 211 x1000/uL (130-400); RED BLOOD CELL COUNT 3.35 mill/uL (4.7-6.1); RED CELL DISTRIBUTION WIDTH 13.8 % (11.6-14.6)
[2020-01-18 10:38] LABS: PLATELET ESTIMATE NORMAL
[2020-01-18] MEDS: VANCOMYCIN 1 G PREMIX 200 ML IV SCH (13:04)
[2020-01-18 13:11] LABS: BG BASE EXCESS 4.1 mmol/L (-2.0-2.0); BG CARBOXYHEMOGLOBIN 0.3 % (0.5-1.5); BG DEOXYHEMOGLOBIN 2.4 % (0.0-5.0); BG FRACTION INSPIRED OXYGEN 80; BG HCO3 ACT 30.9 mmol/L (22.0-26.0); BG METHEMOGLOBIN 0.2 % (0.0-1.5); BG OXYGEN SATURATION 97.6 % (92.0-98.5); BG OXYHEMOGLOBIN 97.1 % (94.0-97.0); BG PCO2 58.8 mmHg (35.0-45.0); BG PH 7.339 (7.350-7.450); BG PO2 111.1 mmHg (75.0-100.0); BG SAMPLE SITE RIGHT RADIAL; BG TIDAL VOLUME(mL) 450 mL; BG VENT MODE VENT - A/C PRVC; BG VENT RATE 24 set
[2020-01-18] MEDS: REMDESIVIR 100 MG in SODIUM CHLORIDE 0.9% 250 ML IV SCH (13:51)
[2020-01-18] MEDS: ALBUTEROL 6.7GM HFA INHALER ORI SCH ×3 (13:55→23:02)
[2020-01-18] MEDS: MIDAZOLAM HCL 100 MG in DEXT 5% WATER 80 ML IV PRN (22:48)
[2020-01-19] VITALS (96 sets, daily range): BP systolic 110–181; BP diastolic 52–91
[2020-01-19] MEDS: METOCLOPRAMIDE HCL 10MG/2ML VIAL IV SCH ×5 (00:39→23:26)
[2020-01-19] MEDS: ALBUTEROL 6.7GM HFA INHALER ORI SCH ×5 (00:45→20:40)
[2020-01-19] MEDS: PROPOFOL 10MG/ML 100ML 100 ML IV PRN ×2 (01:09→05:37)
[2020-01-19] MEDS: PIPERACILLIN/TAZOBACTAM 2.25 G in DEXTROSE 5% WATER 50 ML IV SCH ×4 (05:29→23:33)
[2020-01-19] MEDS: ENOXAPARIN 80MG/0.8ML SYR SUBCUT SCH ×2 (06:14→17:15)
[2020-01-19] MEDS: RISPERIDONE 0.5MG TABLET PO SCH (08:24)
[2020-01-19] MEDS: LEVETIRACETAM 1,000 MG in SODIUM CHLORIDE 0.9% 100 ML IV SCH ×2 (08:24→20:49)
[2020-01-19] MEDS: METHYLPREDNISOLONE SOD SUCC 40 MG/ML VIAL IV SCH ×2 (08:24→20:15)
[2020-01-19] MEDS: LAMOTRIGINE 150MG TABLET PO SCH ×2 (08:24→20:15)
[2020-01-19 08:32] LABS: HEMATOCRIT. 27.9 % (42.0-52.0); HEMOGLOBIN. 9.5 g/dL (14.0-18.0); MEAN CORPUSCULAR HEMOGLOBIN 32.1 pg (28.0-32.0); MEAN CORPUSCULAR VOLUME 93.8 fL (80.0-94.0); MEAN PLATELET VOLUME 10.1 fl (7.4-10.4); PLATELET 190 x1000/uL (130-400); RED BLOOD CELL COUNT 2.97 mill/uL (4.7-6.1); RED CELL DISTRIBUTION WIDTH 13.8 % (11.6-14.6)
[2020-01-19 08:39] LABS: CHLORIDE 108 mEq/L (98-107)
[2020-01-19] MEDS: FENTANYL CITRATE/PF 1,000 MCG in SODIUM CHLORIDE 0.9% 80 ML IV PRN (12:07)
[2020-01-19 13:00] LABS: PLATELET ESTIMATE NORMAL
[2020-01-19] MEDS: PANTOPRAZOLE SODIUM 40 MG/VIAL IV SCH (13:49)
[2020-01-19] MEDS ORDERED: SODIUM POLYSTYRENE SULFONATE 15 G/60 ML BOT NG NR (16:00)
[2020-01-19] MEDS: DEXT 5%/0.45% NACL 1000ML 1,000 ML IV SCH (17:26)
[2020-01-19] MEDS: MIDAZOLAM HCL 100 MG in DEXT 5% WATER 80 ML IV PRN (17:28)
[2020-01-20] VITALS (90 sets, daily range): BP systolic 92–166; BP diastolic 48–89
[2020-01-20] MEDS: FENTANYL CITRATE/PF 1,000 MCG in SODIUM CHLORIDE 0.9% 80 ML IV PRN ×3 (00:14→23:35)
[2020-01-20] MEDS: ALBUTEROL 6.7GM HFA INHALER ORI SCH ×6 (00:55→23:45)
[2020-01-20] MEDS: MIDAZOLAM HCL 100 MG in DEXT 5% WATER 80 ML IV PRN ×2 (04:36→15:17)
[2020-01-20] MEDS: METOCLOPRAMIDE HCL 10MG/2ML VIAL IV SCH ×4 (05:08→23:27)
[2020-01-20] MEDS: PIPERACILLIN/TAZOBACTAM 2.25 G in DEXTROSE 5% WATER 50 ML IV SCH ×2 (05:08→12:20)
[2020-01-20] MEDS: ENOXAPARIN 80MG/0.8ML SYR SUBCUT SCH ×2 (05:09→17:47)
[2020-01-20 05:52] LABS: HEMATOCRIT. 29.7 % (42.0-52.0); HEMOGLOBIN. 9.9 g/dL (14.0-18.0); MEAN CORPUSCULAR HEMOGLOBIN 31.5 pg (28.0-32.0); MEAN CORPUSCULAR VOLUME 94.3 fL (80.0-94.0); MEAN PLATELET VOLUME 10.2 fl (7.4-10.4); PLATELET 193 x1000/uL (130-400); RED BLOOD CELL COUNT 3.14 mill/uL (4.7-6.1); RED CELL DISTRIBUTION WIDTH 13.6 % (11.6-14.6)
[2020-01-20 05:55] LABS: CHLORIDE 108 mEq/L (98-107)
[2020-01-20 08:13] LABS: BG BASE EXCESS -2.7 mmol/L (-2.0-2.0); BG CARBOXYHEMOGLOBIN 0.3 % (0.5-1.5); BG FRACTION INSPIRED OXYGEN 70; BG HCO3 ACT 23.3 mmol/L (22.0-26.0); BG METHEMOGLOBIN 0.6 % (0.0-1.5); BG OXYGEN SATURATION 89.9 % (92.0-98.5); BG OXYHEMOGLOBIN 89.1 % (94.0-97.0); BG PCO2 45.7 mmHg (35.0-45.0); BG PH 7.326 (7.350-7.450); BG PO2 66.9 mmHg (75.0-100.0); BG SAMPLE SITE RIGHT RADIAL; BG TIDAL VOLUME(mL) 450 mL; BG TOTAL HEMOGLOBIN 10.6 g/dL (12.0-18.0); BG VENT MODE VENT- PRVC; BG VENT RATE 24 set
[2020-01-20] MEDS: RISPERIDONE 0.5MG TABLET PO SCH (08:25)
[2020-01-20] MEDS: LAMOTRIGINE 150MG TABLET PO SCH ×2 (08:25→21:08)
[2020-01-20] MEDS: METHYLPREDNISOLONE SOD SUCC 40 MG/ML VIAL IV SCH ×2 (08:25→21:08)
[2020-01-20] MEDS: PANTOPRAZOLE SODIUM 40 MG/VIAL IV SCH (08:25)
[2020-01-20] MEDS: DEXT 5%/0.45% NACL 1000ML 1,000 ML IV SCH ×2 (08:26→21:08)
[2020-01-20] MEDS: LEVETIRACETAM 1,000 MG in SODIUM CHLORIDE 0.9% 100 ML IV SCH ×2 (08:28→21:08)
[2020-01-20] MEDS ORDERED: REGADENOSON 0.4 MG/5 ML IV ONE (12:07)
[2020-01-20 12:40] LABS: PLATELET ESTIMATE NORMAL
[2020-01-20] MEDS ORDERED: DOCUSATE SODIUM SUGAR FREE 100MG/10ML UDC NG NR (17:45)
[2020-01-20] MEDS: LACTULOSE 20G/30ML UDC PO PRN (17:46)
[2020-01-21] VITALS (90 sets, daily range): BP systolic 102–179; BP diastolic 55–129
[2020-01-21] MEDS: MIDAZOLAM HCL 100 MG in DEXT 5% WATER 80 ML IV PRN ×2 (03:07→11:26)
[2020-01-21 05:57] LABS: HEMATOCRIT. 29.9 % (42.0-52.0); MEAN CORPUSCULAR HEMOGLOBIN 30.5 pg (28.0-32.0); MEAN CORPUSCULAR VOLUME 91.4 fL (80.0-94.0); MEAN PLATELET VOLUME 10.7 fl (7.4-10.4); PLATELET 201 x1000/uL (130-400); RED BLOOD CELL COUNT 3.27 mill/uL (4.7-6.1); RED CELL DISTRIBUTION WIDTH 13.7 % (11.6-14.6)
[2020-01-21 05:59] LABS: CHLORIDE 108 mEq/L (98-107)
[2020-01-21] MEDS: METOCLOPRAMIDE HCL 10MG/2ML VIAL IV SCH ×4 (06:16→23:59)
[2020-01-21] MEDS: ENOXAPARIN 80MG/0.8ML SYR SUBCUT SCH ×2 (06:16→17:04)
[2020-01-21] MEDS: ALBUTEROL 6.7GM HFA INHALER ORI SCH ×4 (08:37→21:00)
[2020-01-21] MEDS: METHYLPREDNISOLONE SOD SUCC 40 MG/ML VIAL IV SCH (08:44)
[2020-01-21] MEDS: DOCUSATE SODIUM SUGAR FREE 100MG/10ML UDC NG SCH (08:44)
[2020-01-21] MEDS: PANTOPRAZOLE SODIUM 40 MG/VIAL IV SCH (08:44)
[2020-01-21] MEDS: LAMOTRIGINE 150MG TABLET PO SCH ×2 (08:45→20:23)
[2020-01-21] MEDS: RISPERIDONE 0.5MG TABLET PO SCH (08:45)
[2020-01-21] MEDS: LEVETIRACETAM 1,000 MG in SODIUM CHLORIDE 0.9% 100 ML IV SCH ×2 (08:45→20:24)
[2020-01-21 09:00] LABS: BG BASE EXCESS -0.3 mmol/L (-2.0-2.0); BG FRACTION INSPIRED OXYGEN 80; BG HCO3 ACT 26.3 mmol/L (22.0-26.0); BG PCO2 49.9 mmHg (35.0-45.0); BG PH 7.339 (7.350-7.450); BG PO2 68.1 mmHg (75.0-100.0); BG SAMPLE SITE RIGHT RADIAL; BG TIDAL VOLUME(mL) 450 mL; BG VENT MODE PRVC; BG VENT RATE 24 set
[2020-01-21 10:43] LABS: NUCLEATED RED BLOOD CELLS 1 /100 WBC
[2020-01-21 10:45] LABS: PLATELET ESTIMATE NORMAL
[2020-01-21] MEDS ORDERED: SORBITOL 70% SOLN 30ML PO PRN (11:15)
[2020-01-21] MEDS: LACTULOSE 20G/30ML UDC PO PRN (11:24)
[2020-01-21] MEDS: FENTANYL CITRATE/PF 1,000 MCG in SODIUM CHLORIDE 0.9% 80 ML IV PRN (11:26)
[2020-01-21] MEDS: DEXT 5%/0.45% NACL 1000ML 1,000 ML IV SCH ×2 (17:05→20:43)
[2020-01-22] VITALS (73 sets, daily range): BP systolic 88–153; BP diastolic 34–90
[2020-01-22] MEDS: MIDAZOLAM HCL 100 MG in DEXT 5% WATER 80 ML IV PRN ×2 (00:08→10:41)
[2020-01-22] MEDS: ALBUTEROL 6.7GM HFA INHALER ORI SCH ×3 (00:40→08:32)
[2020-01-22 05:06] LABS: HEMATOCRIT 29.5 % (42.0-52.0); HEMOGLOBIN 9.7 g/dL (14.0-18.0); PLATELET 185 x1000/uL (130-400); RED BLOOD CELL COUNT 3.24 mill/uL (4.7-6.1); RED CELL DISTRIBUTION WIDTH 13.8 % (11.6-14.6)
[2020-01-22 05:11] LABS: CHLORIDE 109 mEq/L (98-107)
[2020-01-22 05:22] LABS: PHOSPHORUS 2.5 mg/dL (2.5-4.9)
[2020-01-22] MEDS: METOCLOPRAMIDE HCL 10MG/2ML VIAL IV SCH ×3 (05:57→17:59)
[2020-01-22] MEDS: ENOXAPARIN 80MG/0.8ML SYR SUBCUT SCH ×2 (05:58→17:59)
[2020-01-22 08:32] LABS: BG BASE EXCESS -1.7 mmol/L (-2.0-2.0); BG CARBOXYHEMOGLOBIN 0.3 % (0.5-1.5); BG DEOXYHEMOGLOBIN 11.9 % (0.0-5.0); BG FRACTION INSPIRED OXYGEN 90; BG HCO3 ACT 26.4 mmol/L (22.0-26.0); BG OXYGEN SATURATION 88.1 % (92.0-98.5); BG OXYHEMOGLOBIN 87.8 % (94.0-97.0); BG PCO2 61.9 mmHg (35.0-45.0); BG PH 7.247 (7.350-7.450); BG PO2 64.6 mmHg (75.0-100.0); BG SAMPLE SITE RIGHT BRACHIAL; BG TIDAL VOLUME(mL) 450 mL; BG TOTAL HEMOGLOBIN 10.6 g/dL (12.0-18.0); BG VENT MODE VENT- PRVC; BG VENT RATE 24 set
[2020-01-22] MEDS: PANTOPRAZOLE SODIUM 40 MG/VIAL IV SCH (08:35)
[2020-01-22] MEDS: DOCUSATE SODIUM SUGAR FREE 100MG/10ML UDC NG SCH (08:35)
[2020-01-22] MEDS: RISPERIDONE 0.5MG TABLET PO SCH (08:36)
[2020-01-22] MEDS: LEVETIRACETAM 1,000 MG in SODIUM CHLORIDE 0.9% 100 ML IV SCH (08:43)
[2020-01-22] MEDS: LAMOTRIGINE 150MG TABLET PO SCH (08:43)
[2020-01-22] MEDS ORDERED: METHYLPREDNISOLONE SOD SUCC 40 MG/ML VIAL IV SCH (09:00)
[2020-01-22] MEDS: FENTANYL CITRATE/PF 1,000 MCG in SODIUM CHLORIDE 0.9% 80 ML IV PRN ×3 (10:34)
[2020-01-22] MEDS: LACTULOSE 20G/30ML UDC PO PRN (12:23)
[2020-01-22] MEDS ORDERED: MORPHINE SULFATE 250 MG in DEXT 5% WATER 240 ML IV PRN (16:00)
[2020-01-22] MEDS ORDERED: MEROPENEM 1,000 MG in SODIUM CHLORIDE 0.9% 100 ML IV SCH (16:00)
[2020-01-22] MEDS ORDERED: VANCOMYCIN 1500MG in DEXTROSE 5% WATER 250ML IV SCH (16:00)
[2020-01-22] MEDS ORDERED: METOPROLOL TARTRATE 25MG TABLET PO SCH (21:00)
[2020-01-23] MEDS ORDERED: VANCOMYCIN 1 G PREMIX 200 ML IV SCH (10:00)
== END 2020-01-22 19:29 | disposition expired | DRG 870 ==
LOC: ER 11:36 → 7EST 14:12 → EDBEDREQ 14:20 → ENRESERV 19:52 → CANRESERV 19:52 → ENRESERV 22:13 → MICUNO 01-14 11:16 → MICUSO 01-16 23:10
PROVIDERS: ADMIT Internal Medicine; ATTEND Internal Medicine
PROC: 5A1955Z Respiratory Ventilation, Greater than 96 Consecutive Hours (ICD-10-PCS; principal; 2020-01-14)
PROC: 0BH17EZ Insertion of Endotracheal Airway into Trachea, Via Natural or Artificial Opening (ICD-10-PCS; 2020-01-14)
PROC: B54MZZA Ultrasonography of Right Upper Extremity Veins, Guidance (ICD-10-PCS; 2020-01-14)
PROC: 05HY33Z Insertion of Infusion Device into Upper Vein, Percutaneous Approach (ICD-10-PCS; 2020-01-14)
DX: A41.89 Other specified sepsis (principal); U07.1 COVID-19; J96.01 Acute respiratory failure with hypoxia; J12.89 Other viral pneumonia; E43 Unspecified severe protein-calorie malnutrition; G93.40 Encephalopathy, unspecified; N17.9 Acute kidney failure, unspecified; N39.0 Urinary tract infection, site not specified; I47.1 Supraventricular tachycardia; Z99.11 Dependence on respirator [ventilator] status; D64.9 Anemia, unspecified; E87.5 Hyperkalemia; G40.909 Epilepsy, unspecified, not intractable, without status epilepticus; I12.9 Hypertensive chronic kidney disease with stage 1 through stage 4 chronic kidney disease, or unspecified chronic kidney disease; K21.9 Gastro-esophageal reflux disease without esophagitis; N18.9 Chronic kidney disease, unspecified; R62.7 Adult failure to thrive; Z78.1 Physical restraint status; Z86.718 Personal history of other venous thrombosis and embolism; Z95.828 Presence of other vascular implants and grafts; Z79.899 Other long term (current) drug therapy; Z87.81 Personal history of (healed) traumatic fracture; Z68.26 Body mass index [BMI] 26.0-26.9, adult
CPT/HCPCS: 36415; 36600; 71045; 74176; 76937; 80048; 80053; 80076; 80202; 80320; 81003; 82375; 82550; 82728; 82805; 82962; 83605; 83615; 83735; 83880; 84100; 84145; 84478; 84484; 85025; 85027; 85379; 85384; 86140; 86850; 86900; 93005; 94003; 94640; 96365; 99285; C1725; C9113; J0456; J0696; J1650; J1953; J2060; J2185; J2250; J2543; J2704; J2765; J2785; J2920; J3010; J3370; J3490; J7050; J7060; Q9957; G0480; U0003-CS